=== PATIENT | female | born 1975 | race African-American/Black ===

== ENCOUNTER 2018-04-06 11:10 | Inpatient (IN) | payer OTHER ==
[2018-04-06 12:28] LABS: HCG,QUALITATIVE URINE Negative
[2018-04-06 13:08] LABS: URINE APPEARANCE CLEAR; URINE BILIRUBIN NEGATIVE (<2.0 mg/dL); URINE COLOR YELLOW; URINE GLUCOSE (UA) NEGATIVE (NEGATIVE); URINE KETONE NEGATIVE (NEGATIVE); URINE LEUK ESTERASE NEGATIVE (NEGATIVE); URINE NITRITE NEGATIVE (NEGATIVE); URINE PROTEIN 1+ (NEGATIVE)
--- NOTE | 2018-04-06 13:10 | PDOC ---
History of Present Illness - General Chief Complaint: Chronic pain Stated Complaint: SENT BY PCP History Source: Patient - History of Present Illness Initial Comments: 04/06/18 14:07 42 yr old woman with chronic left lower back pain radiating down her left leg progessively causing weakness since August 2017 was found to have paravertebral mass eroding LS spine on MRI on 03/02/2018. a/w difficulty walking and laying the left side due to pain and constipation for past few months. notes 10lbs weightloss for 1 month. she attempted physical therapy and pain management with Dr. Benito(same office as Dr. Pereira) and received "pain shots in her spine" last one in 12/2017 that provided no relief. denies incontinence, fever, chest pain, sob, dysuria, vaginal bleeding. 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[employer] smokes daily started at age 17, socially etoh, denied illicit drug use Past History - Past Medical History Allergies/Adverse Reactions: Allergies Allergy/AdvReac Type Severity Reaction Status Date / Time morphine Allergy Mild Itching Verified 12/14/11 18:12 No Known Drug Allergies Allergy Verified 12/14/11 18:11 Home Medications: Ambulatory Orders No Home Medications 0 dose .ROUTE UTDICT 12/14/11 Anemia: No Asthma: No Cancer: Yes (uterus pathology tba tomorrow) Cardiac Disorders: No CVA: No COPD: No CHF: No Dementia: No Diabetes: No GI Disorders: No Disorders: No HTN: No Hypercholesterolemia: No Liver Disease: No Seizures: No Thyroid Disease: No - Surgical History Abdominal Surgery: No Appendectomy: No Cardiac Surgery: No Cholecystectomy: No Lung Surgery: No Neurologic Surgery: No Orthopedic Surgery: No - Suicide/Smoking/Psychosocial Hx Smoking Status: Yes Smoking History: Current every day smoker Years of Tobacco Use: 20 Have you smoked in the past 12 months: No Number of Cigarettes Smoked Daily: 8 If you are a former smoker, when did you quit?: 2009 Information on smoking cessation initiated: No 'Breaking Loose' booklet given: 12/01/11 Hx Alcohol Use: Yes (SOCIAL) Drug/Substance Use Hx: No Substance Use Type: None Hx Substance Use Treatment: No Review of Systems - Review of Systems Constitutional: Yes: Unintentional Wgt. Loss. No: Chills, Fever HEENTM: No: Blurred Vision, Throat Pain, Throat Swelling, Difficulty Swallowing Respiratory: No: Cough, SOB with Exertion, SOB at Rest, Hemoptysis Cardiac (ROS): Yes: Edema (left leg swelling). No: Chest Pain, Irregular Heart Rate, Chest Tightness ABD/GI: No: Vomiting Musculoskeletal: Yes: Back Pain, Muscle Weakness Neurological: Yes: Numbness, Tingling, Weakness, Unsteady Gait. No: Dizziness Hematologic/Lymphatic: Yes: Anemia *Physical Exam - Vital Signs Last Vital Signs Temp Pulse Resp BP Pulse Ox 98.8 F 82 18 128/73 97 04/06/18 11:26 04/06/18 11:26 04/06/18 11:26 04/06/18 11:26 04/06/18 11:26 - Physical Exam General Appearance: Yes: Mild Distress HEENT: positive: EOMI, DAWIT, Pharynx Normal Neck: positive: Trachea midline, Supple. negative: Lymphadenopathy (R), Lymphadenopathy (L) Respiratory/Chest: positive: Lungs Clear, Normal Breath Sounds. negative: Rhonchi, Wheezing Cardiovascular: positive: Regular Rhythm, Regular Rate. negative: Murmur Vascular Pulses: Dorsalis-Pedis (R): 2+, Doralis-Pedis (L): 2+ Gastrointestinal/Abdominal: positive: Normal Bowel Sounds, Soft. negative: Tender, Distended Musculoskeletal: positive: Vertebral Tenderness (left lower back and left hip). negative: CVA Tenderness Neurologic: positive: administrative services coordinator II-XII NML intact, Fully Oriented, Alert, Other. negative: Babinski (5/5 extension and flexion and all UE muscle groups, 5/5 extension and flexion on RLE muscle groups, limited ROM at left hip due to pain , 4/5 left knee extension and flexion, 5/5 dorsi and plantar flexion in left. sensation decr in left thigh with numbness in left lower leg) Deep Tendon Reflexes: Knee (L): 2+, Knee (R): 2+, Bicep (L): 2+, Bicep (R): 2+ Moderate Sedation - Procedure Monitoring Vital Signs: Procedure Monitoring Vital Signs Temperature 98.8 F 04/06/18 11: Pulse Rate 82 04/06/18 11:26 Respiratory Rate 18 04/06/18 11:26 Blood Pressure 128/73 04/06/18 11:26 O2 Sat by Pulse Oximetry (%) 97 04/06/18 11:26 ED Treatment Course - ADDITIONAL ORDERS Additional order review: Laboratory Results 04/06/18 12:10 Urine HCG, Qual Negative Medical Decision Making - Medical Decision Making 04/06/18 14:49 discussed with PCP, Dr. Nix to admit pt, consult dr. Alcantara for neurosurgery eval. placed call for Dr. Alcantara, awaiting call back initiated decadron 10mg ivpush, protonix 40mg, pain control with hydromorphone, blood cultures routine labs, CEA 5.1 04/06/18 14:52 dr. nix at bedside, accepted pt under his service *DC/Admit/Observation/Transfer Diagnosis at time of Disposition: Paravertebral mass - Discharge Dispostion Decision to Admit order: Yes - Referrals - Patient Instructions - Post Discharge Activity
[2018-04-06 13:41] LABS: EPI CELLS RARE /HPF (FEW); URINE MUCUS FEW
[2018-04-06] MEDS ORDERED: HYDROmorphone HCL CARPU-JECT 2 MG/1 ML DISP.SYRIN IVPUSH ONE (14:31)
[2018-04-06] MEDS ORDERED: PANTOPRAZOLE SODIUM 40 MG VIAL IVPUSH ONE (14:31)
[2018-04-06] MEDS ORDERED: DEXAMETHASONE SOD PHOSPHATE 10 MG/1 ML VIAL IVPUSH ONE (14:31)
[2018-04-06] MEDS ORDERED: DOCUSATE SODIUM 100 MG CAPSULE (FP) PO ONE ×2 (14:31→15:16)
[2018-04-06] MEDS ORDERED: HYDROmorphone HCl 2 MG/ML VIAL ONE (14:37)
[2018-04-06] MEDS ORDERED: HYDROmorphone HCL CARPU-JECT 2 MG/1 ML DISP.SYRIN IVPB PRN (14:43)
[2018-04-06] MEDS ORDERED: DEXAMETHASONE SOD PHOSPHATE 20 MG/5 ML VIAL IVPB SCH (14:45)
[2018-04-06] MEDS ORDERED: DEXAMETHASONE SOD PHOSPHATE 10 MG/1 ML VIAL ONE (14:55)
[2018-04-06] MEDS ORDERED: PANTOPRAZOLE SODIUM 40 MG/100 ML BAG IVPB ONE (14:55)
--- NOTE | 2018-04-06 14:55 | EKG ---
Test Reason : Blood Pressure : / mmHG Vent. Rate : 075 BPM Atrial Rate : 075 BPM P-R Int : 140 ms QRS Dur : 076 ms QT Int : 364 ms P-R-T Axes : 041 021 019 degrees QTc Int : 406 ms POOR DATA QUALITY, INTERPRETATION MAY BE ADVERSELY AFFECTED NORMAL SINUS RHYTHM NONSPECIFIC T WAVE ABNORMALITY ABNORMAL ECG WHEN COMPARED WITH ECG OF 01-DEC-2011 08:47, NO SIGNIFICANT CHANGE WAS FOUND Confirmed by NOREEN ACEVEDO, PRETTY ([id number]) on 04/06/2018 2:54:53 PM Referred By: Confirmed By:PRETTY SORTO MD
--- NOTE | 2018-04-06 15:00 | HP ---
Admitting History and Physical - Admission Chief Complaint: 42 y.o F was sent to ER today due to worsening left low back and left thigh pain, left LE paresthesias and numbness. The symptoms started and gradually progressed over several months, her MRI LS spine showed paravertebral mass with cortical destruction L4, L5, S1 in March 02 2018. PO oral meds were not effective. 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 No: Alzheimer's, CVA, Dementia, Migraine , Multiple Sclerosis, Peripheral Neuropathy, Parkinson's, Seizure, Syncope, TIA , Vertigo Cardiovascular: No: AFIB, Aneurysm, Aortic Insufficiency, CAD, CHF, HTN, Hyperlipdemia Pulmonary: No: Asthma, COPD Gastrointestinal: No: Cancer Hepatobiliary: No: Cirrhosis, Cholelithiasis, Cholecystitis, Choledocholithiasis , Hepatitis A, Hepatitis B, Hepatitis C, Other Renal/: No: Renal Failure Reproductive: Yes: Other (LISBETH/BSO cervical CA) ...LMP: 09/27/11 Infectious Disease: No: AIDS, C-Diff, Herpes Zoster, HIV, MRSA, STD's, Tuberculosis, VREF, Other Psych: No: Addictions, Anxiety, Bipolar, Depression, Panic, Psychosis, Schizophrenia, Other Rheumatology: No: Fibromyalgia, Gout, Lupus, Rheumatoid Arthritis, Sarcoidosis, Vasculitis, Other ENT: No: Allergic Rhinitis, Sinusitis, Other Endocrine: No: Robbie's Disease, Howie's Disease, Diabetes Insipidus, Diabetes Mellitus, Hyperparathyroidism, Hyperthyroidism, Hypothyroidism, Osteopenia, SIADH, Other Dermatology: No: Basal Cell, Cellulitis, Eczema, Melanoma, Psoriasis, Squamous Cell, Other - Past Surgical History Past Surgical History: Yes: Hysterectomy, Oopherectomy - Smoking History Smoking history: Current every day smoker Have you smoked in the past 12 months: No Aproximately how many cigarettes per day: 8 If you are a former smoker, when did you quit?: 2009 - Alcohol/Substance Use Hx Alcohol Use: Yes (SOCIAL) Home Medications - Allergies Allergies/Adverse Reactions: Allergies Allergy/AdvReac Type Severity Reaction Status Date / Time morphine Allergy Mild Itching Verified 12/14/11 18:12 No Known Drug Allergies Allergy Verified 12/14/11 18:11 - Home Medications Home Medications: Ambulatory Orders No Home Medications 0 dose .ROUTE UTDICT 12/14/11 Family Disease History - Family Disease History Family History: Unremarkable Review of Systems - Review of Systems Eyes: reports: No Symptoms HENT: reports: No Symptoms Neck: reports: No Symptoms Cardiovascular: reports: No Symptoms Respiratory: reports: No Symptoms Gastrointestinal: reports: No Symptoms Genitourinary: denies: Burning, Discharge Breasts: reports: No Symptoms Reported Musculoskeletal: reports: Back Pain, Muscle Pain (left thigh) Integumentary: reports: No Symptoms Neurological: reports: No Symptoms Endocrine: denies: No Symptoms, Excessive Sweating, Flushing, Increased Hunger, Increased Thirst, Intolerance to Cold, Intolerance to Heat, Unexplained Weight Gain, Unexplained Weight Loss, Other Hematology/Lymphatic: denies: No Symptoms, Easily Bruised, Excessive Bleeding, Swollen Glands, Other Psychiatric: reports: No Symptoms Physical Examination Vital Signs: Vital Signs Temperature 98.8 F 04/06/18 11:26 Pulse Rate 82 04/06/18 11:26 Respiratory Rate 18 04/06/18 11:26 Blood Pressure 128/73 04/06/18 11:26 O2 Sat by Pulse Oximetry (%) 97 04/06/18 11:26 Constitutional: Yes: Anxious, Moderate Distress Eyes: Yes: Conjunctiva Clear, EOM Intact HENT: Yes: Atraumatic, Normocephalic Neck: Yes: Supple, Trachea Midline Cardiovascular: Yes: Regular Rate and Rhythm, S1, S2. No: Bradycardia, Tachycardia Respiratory: Yes: Regular, CTA Bilaterally Gastrointestinal: Yes: Normal Bowel Sounds, Soft, Tenderness (Left low quadrant / inguinal). No: Abdomen, Obese, Ascites Renal/: No: Anuria, Bladder Distention, CVA Tenderness - Left, CVA Tenderness - Right Musculoskeletal: Yes: Back Pain, Muscle Pain Extremities: No: Amputation, Calf Tenderness, Cold, Cyanosis Edema: No Integumentary: Yes: WNL Neurological: Yes: Alert, Oriented, Cran Nerves II-XII Intact, Numbness (LLE), Tingling (LLE). No: Aphasia, Confusion ...Motor Strength: LLE (mild weakness) Labs: Laboratory Results - last 24 hr 04/06/18 12:10 Urine Color Yellow Urine Appearance Clear Urine pH 5.0 Ur Specific [place] 1.033 Urine Protein 1+ H Urine Glucose (UA) Negative Urine Ketones Negative Urine Blood Negative Urine Nitrite Negative Urine Bilirubin Negative Urine Urobilinogen 2.0 H Ur Leukocyte Esterase Negative Urine WBC (Auto) 1 Urine RBC (Auto) 9 Ur Epithelial Cells Rare Urine Mucus Few Urine HCG, Qual Negative Imaging - Results Cat Scan: Pending Problem List - Problems (1) Paravertebral mass Assessment/Plan: Discussed with Dr Benito. CT chest/abdomen/pelvis Bone scan IV steroids Biopsy by IR Code(s): R22.2 - LOCALIZED SWELLING, MASS AND LUMP, TRUNK (2) Pain Assessment/Plan: IV hydromoephone IV steroids Code(s): R52 - PAIN, UNSPECIFIED
[2018-04-06 15:05] LABS: HEMATOCRIT 26.7 % (32.4-45.2); HEMOGLOBIN 8.5 GM/dL (10.7-15.3); MCHC 31.9 g/dl (32.0-36.0); MEAN CELL VOLUME 75.2 fl (80-96); MEAN PLT VOLUME 7.3 fl (7.5-11.1); PLATELET COUNT 550 K/MM3 (134-434); RBC 3.55 M/mm3 (3.60-5.2); RDW 16.2 % (11.6-15.6); WHITE BLOOD COUNT 7.1 K/mm3 (4.0-10.0)
[2018-04-06] MEDS ORDERED: ONDANSETRON 4 MG/2 ML VIAL IVPB PRN (15:09)
[2018-04-06 15:14] LABS: INR 1.13 (0.83-1.09); PROTHROMBIN TIME (PATIENT) 13.4 SEC (9.7-13.0)
[2018-04-06 15:17] LABS: ACTIVATED PTT 34.4 SECONDS (25.2-36.5)
[2018-04-06 15:31] LABS: ALBUMIN 3.3 g/dl (3.4-5.0); ALK PHOS 55 U/L (45-117); ANION GAP 5 MMOL/L (8-16); BILIRUBIN,TOTAL 0.3 mg/dL (0.2-1); BLOOD UREA NITROGEN 15 mg/dL (7-18); CALCIUM 9.2 mg/dL (8.5-10.1); CHLORIDE 110 mmol/L (98-107); CO2 28 mmol/L (21-32); CREATININE 0.5 mg/dL (0.55-1.3); GLUCOSE,RANDOM 88 mg/dL (74-106); POTASSIUM 4.3 mmol/L (3.5-5.1); SGOT/AST 28 U/L (15-37); SGPT/ALT 27 U/L (13-61); SODIUM 143 mmol/L (136-145)
--- NOTE | 2018-04-06 15:54 | PDOC ---
Attending Attestation - Resident Resident Name: CosmeAlex - ED Attending Attestation I have performed the following: I have examined & evaluated the patient, The case was reviewed & discussed with the resident, I agree w/resident's findings & plan, Exceptions are as noted - Physicial Exam PE: 04/06/18 15:52 awaker, alert, mild distres nc, atr perrla, eomi cta rrr Reproducible tenderness to the left paraspinal area from the left buttock down to the left hip exacerbated by movement at the left hip joint. no foot drop, nl reflexes b/l, decreased fine touch to l3-l4 - Medical Decision Making 04/06/18 15:53 42-year-old female with a paraspinal mass, most likely metastatic lesion eroding into the lumbar spine with no motor deficit the decrease in fine touch. We'll administer Decadron. Will admit with oncology, neurology and neurosurgery consults. <Minesh Street - Last Filed: 04/06/18 15:52> - HPI HPI: 04/06/18 16:35 The patient is a 42-year-old female who presents to the ED with worsening left- sided lower back pain with LLE numbness and paresthesias. Patient noted to have a paraspinal mass eroding the LS spine on MRI taken on 03/02/18. <Beth Keyes - Last Filed: 04/06/18 16:36> Attestations - Attestations 04/06/18 16:36 Documentation prepared by Beth Keyes, acting as medical/surgery registered nurse for Minesh Street MD. <Beth Keyes - Last Filed: 04/06/18 16:36>
[2018-04-06 16:29] LABS: ERYTHROCYTE SEDIMENTATION RATE 44 mm/hr (0-20)
[2018-04-06 16:49] LABS: PLATELET ESTIMATE INCREASED; TARGET CELLS FEW
--- NOTE | 2018-04-06 17:47 | PN ---
Progress Note (short form) - Note Progress Note: NEUROSURGERY CONSULT DICTATED Chart reviewed February 2018 LS spine MRI reviewed Pt examined c/o worsening left low back and left thigh pain, left LE weakness, paresthesias and numbness. Numbness L groin and perineal region. No B/B incontinence. The symptoms started and gradually progressed over several months, her MRI LS spine showed paravertebral mass with cortical destruction L4, L5, S1 in March 02 2018. PO oral meds were not effective. Pt had not udnergone CT guided needle bx as recommended as yet. PE: AF, VSS HENT- NC/AT; Neck- supple; Cor- RRR; Lungs- CTA B; Abd- benign; Ext- no sign of DVT CN- intact; Motor- 5/5 except mild L IP weakness 4+, pain limited; Sensation- paresthesia to LT/PP L L3-4-5-S1; DTR- 2+ except absent L patellar DTR; + SLR on L at 30 degrees WBC 7.1, Hgb 8.5 MRI LS spine (noncontrast): L L4-L5-S1 Paraspinal mass displacing the psoas muscle anteriorly; T2 hyperintensity L4, L5 and L S1; L4-5, L5-S1 DDD > L3-4 L L4-5-S1 paraspinal mass, r/o mets >s primary malignancy (neurofibroma, malignant schwannoma) CT guided biopsy reasonable and recommended RT or chemo pending path findings Role of surgery likely limited depending on path MRI with niyah electively to assess tumor origin, size, and margin Neurontin for radicular symptoms Steroids D/w Dr Benito
--- NOTE | 2018-04-06 18:48 | PN ---
Progress Note (short form) - Note Progress Note: Patient seen and examined Consult dictated 42 year old with t1,b1 cervical squamous cell ca s/p LISBETH-BSO in 2013 with positive pelvic nodes. No additional post op therapy. Presents with LLE back , hip pain raqdiating into left inguinal area, with MRI of one month ago revealing paraspinal mass with lumbar spine cortical bone destruction . Concern for possible recurrent cervical ca vs new primary. Will need tissue diagnosis . IR notified. Begun on decadron therapy and pain meds. To follow up.
--- NOTE | 2018-04-06 20:25 | CONSULT ---
Consultation: REQUESTING PROVIDER: Dr. Sanchez CONSULT REQUEST: We have been asked to medically evaluate this patient for paraspinal mass. HISTORY OF PRESENT ILLNESS: This is a 42 year old female with a past medical history of squamous cell cervical CA treated with LISBETH -BSO in 2011, who presents with worsening chronic left sided low back pain that is now accompanied with left inguinal numbness, left sided leg weakness. MRI 02/2018 showed left sided paraspinal mass with lumbar spine cortical bone destruction. She denies CORDOVA , blurry vision , sob, cp , fever, chills, abdominal pain, n,v, stool or urinary incontinence. She was had a 10lb weight loss in the past 6 months. SHe never followed up with toll collector after hystorectomy. She smoked 1/2 pack cigarettes every three days for the past 20 years. Denies alcohol or drug use. REVIEW OF SYSTEMS: CONSTITUTIONAL: Positive; wt loss Absent: fever, chills, diaphoresis, generalized weakness, malaise, loss of appetite HEENT: Absent: rhinorrhea, nasal congestion, throat pain, throat swelling, difficulty swallowing, mouth swelling, ear pain, eye pain, visual changes CARDIOVASCULAR: Absent: chest pain, syncope, palpitations, irregular heart rate, lightheadedness , peripheral edema RESPIRATORY: Absent: cough, shortness of breath, dyspnea with exertion, orthopnea, wheezing, stridor, hemoptysis GASTROINTESTINAL: Absent: abdominal pain, abdominal distension, nausea, vomiting, diarrhea, constipation, melena, hematochezia GENITOURINARY: Absent: dysuria, frequency, urgency, hesitancy, hematuria, flank pain, genital pain MUSCULOSKELETAL: Absent: myalgia, arthralgia, joint swelling, back pain, neck pain SKIN: Absent: rash, itching, pallor HEMATOLOGIC/IMMUNOLOGIC: Absent: easy bleeding, easy bruising, lymphadenopathy, frequent infections ENDOCRINE: Absent: unexplained weight gain, unexplained weight loss, heat intolerance, cold intolerance NEUROLOGIC: Absent: headache, focal weakness or paresthesias, dizziness, unsteady gait, seizure, mental status changes, bladder or bowel incontinence PSYCHIATRIC: Absent: anxiety, depression, suicidal or homicidal ideation, hallucinations. PHYSICAL EXAMINATION Vital Signs - 24 hr 04/06/18 04/06/18 04/06/18 11:26 15:21 16:11 Temperature 98.8 F 98 F Pulse Rate 82 Pulse Rate [ 86 Apical] Respiratory 18 18 72 H Rate Blood Pressure 128/73 102/59 L Blood Pressure 112/68 [Left Arm] O2 Sat by Pulse 97 99 Oximetry (%) GENERAL: Awake, alert, and fully oriented, crying HEAD: Normal with no signs of trauma. EYES: Pupils equal, round and reactive to light, extraocular movements intact, sclera anicteric, conjunctiva clear. No lid lag. EARS, NOSE, THROAT: Ears normal, nares patent, oropharynx clear without exudates. Moist mucous membranes. NECK: Normal range of motion, supple without lymphadenopathy, JVD, or masses. LUNGS: Breath sounds equal, clear to auscultation bilaterally. No wheezes, and no crackles. No accessory muscle use. Breast: no masses, nipple discharge or axilla adenopathy HEART: Regular rate and rhythm, normal S1 and S2 without murmur, rub or gallop. ABDOMEN: Soft, nontender, not distended, normoactive bowel sounds, no guarding, no rebound, no masses. No hepatomegaly or splenomegaly. MUSCULOSKELETAL: Normal range of motion at all joints. No bony deformities or tenderness. No CVA tenderness. UPPER EXTREMITIES: 2+ pulses, warm, well-perfused. No cyanosis. No clubbing. Cap refill <2 seconds. No peripheral edema. LOWER EXTREMITIES: 2+ pulses, warm, well-perfused. No calf tenderness. No peripheral edema. NEUROLOGICAL: Cranial nerves II-XII intact. Normal speech. Normal gait. PSYCHIATRIC: Cooperative. Good eye contact. Appropriate mood and affect. SKIN: Warm, dry, normal turgor, no rashes or lesions noted. Laboratory Results - last 24 hr 04/06/18 04/06/18 04/06/18 12:10 14:34 14:34 WBC 7.1 RBC 3.55 L Hgb 8.5 L Hct 26.7 L D MCV 75.2 L MCH 24.0 L MCHC 31.9 L RDW 16.2 H Plt Count 550 H MPV 7.3 L Absolute Neuts (auto) 4.3 Neutrophils % 64.0 Neutrophils % (Manual) 64.0 Band Neutrophils % 0.0 Lymphocytes % 29.0 D Lymphocytes % (Manual) 29.0 Monocytes % 4.0 Monocytes % (Manual) 4 Eosinophils % 0.0 D Eosinophils % (Manual) 0.0 Basophils % 0.0 Basophils % (Manual) 0.0 Nucleated RBC % 0 Hypochromia 1+ Platelet Estimate Increased Platelet Comment Large platelets Target Cells Few ESR 44 H PT with INR INR PTT (Actin FS) Sodium 143 Potassium 4.3 Chloride 110 H Carbon Dioxide 28 Anion Gap 5 L BUN 15 Creatinine 0.5 L Creat Clearance w eGFR > 60 Random Glucose 88 Calcium 9.2 Total Bilirubin 0.3 AST 28 ALT 27 Alkaline Phosphatase 55 C-Reactive Protein 2.8 H Total Protein 7.0 Albumin 3.3 L Urine Color Yellow Urine Appearance Clear Urine pH 5.0 Ur Specific [place] 1.033 Urine Protein 1+ H Urine Glucose (UA) Negative Urine Ketones Negative Urine Blood Negative Urine Nitrite Negative Urine Bilirubin Negative Urine Urobilinogen 2.0 H Ur Leukocyte Esterase Negative Urine WBC (Auto) 1 Urine RBC (Auto) 9 Ur Epithelial Cells Rare Urine Mucus Few Urine HCG, Qual Negative Blood Type Antibody Screen 04/06/18 04/06/18 14:34 14:34 WBC RBC Hgb Hct MCV MCH MCHC RDW Plt Count MPV Absolute Neuts (auto) Neutrophils % Neutrophils % (Manual) Band Neutrophils % Lymphocytes % Lymphocytes % (Manual) Monocytes % Monocytes % (Manual) Eosinophils % Eosinophils % (Manual) Basophils % Basophils % (Manual) Nucleated RBC % Hypochromia Platelet Estimate Platelet Comment Target Cells ESR PT with INR 13.40 H INR 1.13 H PTT (Actin FS) 34.4 Sodium Potassium Chloride Carbon Dioxide Anion Gap BUN Creatinine Creat Clearance w eGFR Random Glucose Calcium Total Bilirubin AST ALT Alkaline Phosphatase C-Reactive Protein Total Protein Albumin Urine Color Urine Appearance Urine pH Ur Specific [place] Urine Protein Urine Glucose (UA) Urine Ketones Urine Blood Urine Nitrite Urine Bilirubin Urine Urobilinogen Ur Leukocyte Esterase Urine WBC (Auto) Urine RBC (Auto) Ur Epithelial Cells Urine Mucus Urine HCG, Qual Blood Type O NEGATIVE Antibody Screen Negative Active Medications Generic Name Dose Route Start Last Admin Trade Name Freq PRN Reason Stop Dose Admin Dexamethasone Sodium Phosphate 12 mg 04/06/18 19:00 Decadron Injection - IVPB Q4H RONNY Gabapentin 300 mg 04/06/18 22:00 Neurontin - PO TID RONNY Hydromorphone HCl 2 mg 04/06/18 14:43 Dilaudid Injection - IVPB Q4H PRN PAIN LEVEL 6-10 Ondansetron HCl 8 mg 04/06/18 15:09 Zofran Injection IVPB Q6H PRN NAUSEA Pantoprazole Sodium 40 mg 04/07/18 10:00 Protonix Iv IVPUSH DAILY RONNY Polyethylene Glycol 17 gm 04/06/18 22:00 Miralax (For Daily Use) - PO BID RONNY ASSESSMENT/PLAN: This is a 42 year old female with a past medical history of cervical squamous cell ca, s/p LISBETH-BSO in 2011 with one positive node on left side, who presents with worsening back pain. MRI as outpatient showing left paraspinal mass Left paraspinal mass -cervical ca vs new malignancy? -need tissue biopsy; arrange for am -decaron IV q4h -neurosurgery consult Dispo: We will continue to follow the patient. Thank you for this consultative opportunity. Visit type - Emergency Visit Emergency Visit: Yes ED Registration Date: 04/06/18 Care time: The patient presented to the Emergency Department on the above date and was hospitalized for further evaluation of their emergent condition. - New Patient This patient is new to me today: Yes Date on this admission: 04/06/18 - Critical Care Critical Care patient: No
[2018-04-06] MEDS: GABAPENTIN 300 MG CAPSULE (FP) PO SCH (21:27)
[2018-04-06] MEDS: POLYETHYLENE GLYCOL 3350 119 GM BTL PO SCH (21:27)
[2018-04-06] MEDS: DEXAMETHASONE SOD PHOSPHATE 20 MG/5 ML VIAL IVPB SCH (21:29)
[2018-04-06] MEDS: HYDROmorphone HCl 2 MG/ML VIAL IVPB PRN (21:47)
[2018-04-07] MEDS: DEXAMETHASONE SOD PHOSPHATE 10 MG/1 ML VIAL IVPB SCH ×6 (03:21→21:19)
[2018-04-07] MEDS: HYDROmorphone HCl 2 MG/ML VIAL IVPB PRN ×3 (03:22→18:05)
[2018-04-07] MEDS: GABAPENTIN 300 MG CAPSULE (FP) PO SCH ×3 (05:24→21:19)
[2018-04-07 07:47] LABS: MCH 24.2 pg (25.7-33.7); MCHC 32.1 g/dl (32.0-36.0); MEAN CELL VOLUME 75.2 fl (80-96); MEAN PLT VOLUME 7.4 fl (7.5-11.1); PLATELET COUNT 557 K/MM3 (134-434); RBC 3.73 M/mm3 (3.60-5.2); RDW 16.3 % (11.6-15.6); WHITE BLOOD COUNT 6.2 K/mm3 (4.0-10.0)
[2018-04-07 07:59] LABS: ALBUMIN 3.3 g/dl (3.4-5.0); ALK PHOS 50 U/L (45-117); ANION GAP 7 MMOL/L (8-16); BILIRUBIN,TOTAL 0.3 mg/dL (0.2-1); BLOOD UREA NITROGEN 14 mg/dL (7-18); CALCIUM 9.8 mg/dL (8.5-10.1); CHLORIDE 104 mmol/L (98-107); CHOLESTEROL 192 mg/dL (50-200); CO2 27 mmol/L (21-32); CREATININE 0.6 mg/dL (0.55-1.3); GLUCOSE,RANDOM 155 mg/dL (74-106); HDL CHOLESTEROL 75 mg/dL (40-60); MAGNESIUM 1.9 mg/dL (1.8-2.4); POTASSIUM 4.3 mmol/L (3.5-5.1); SGOT/AST 15 U/L (15-37); SGPT/ALT 22 U/L (13-61); SODIUM 138 mmol/L (136-145); TOT PROT 7.3 g/dl (6.4-8.2); TRIGLYCERIDES 33 mg/dL (0-150)
--- NOTE | 2018-04-07 08:19 | PN ---
Progress Note, Physician Chief Complaint: C/o LLE/low back pain. Neurosurg , onc consult appreciated CT discussed with radiology History of Present Illness: Cervical cancer LISBETH/BSO - Current Medication List Current Medications: Active Medications Dexamethasone Sodium Phosphate (Decadron Injection -) 12 mg IVPB Q4H-IV RONNY Last Admin: 04/07/18 05:25 Dose: 12 mg Gabapentin (Neurontin -) 300 mg PO TID RONNY Last Admin: 04/07/18 05:24 Dose: 300 mg Hydromorphone HCl (Dilaudid Vial -) 2 mg IVPB Q4H PRN PRN Reason: PAIN LEVEL 6-10 Last Admin: 04/07/18 03:22 Dose: 2 mg Ondansetron HCl (Zofran Injection) 8 mg IVPB Q6H PRN PRN Reason: NAUSEA Pantoprazole Sodium (Protonix Iv) 40 mg IVPUSH DAILY COUNTS INCLUDE 234 BEDS AT THE [facility] Polyethylene Glycol (Miralax (For Daily Use) -) 17 gm PO BID COUNTS INCLUDE 234 BEDS AT THE [facility] Last Admin: 04/06/18 21:27 Dose: 17 grams - Objective Vital Signs: Vital Signs Temperature 98.2 F 04/07/18 05:45 Pulse Rate 100 H 04/07/18 05:45 Respiratory Rate 20 04/07/18 05:45 Blood Pressure 112/70 04/07/18 05:45 O2 Sat by Pulse Oximetry (%) 96 04/06/18 21:00 Constitutional: Yes: Anxious, Moderate Distress Eyes: Yes: Conjunctiva Clear, EOM Intact HENT: Yes: Atraumatic, Normocephalic Neck: Yes: Supple, Trachea Midline Cardiovascular: Yes: Regular Rate and Rhythm. No: JVD Respiratory: Yes: Regular, CTA Bilaterally Gastrointestinal: Yes: Normal Bowel Sounds, Soft, Tenderness (left inguinal). No: Abdomen, Obese ...Rectal Exam: Yes: Deferred Genitourinary: No: Anuria, Bladder Distention Breast(s): Yes: WNL Musculoskeletal: Yes: Muscle Pain (left thigh) Extremities: No: Calf Tenderness, Cold, Cyanosis Edema: No Integumentary: Yes: WNL Neurological: Yes: Alert, Oriented, Numbness (Left LE). No: Aphasia, Dysarthria Labs: CBC, BMP 04/07/18 06:07 04/07/18 06:07 INR, PTT INR 1.13 (0.83-1.09) H 04/06/18 14:34 Problem List - Problems (1) Paravertebral mass Assessment/Plan: Discussed with Dr Benito. CT chest/abdomen/pelvis-noted Bone scan IV steroids Biopsy by IR Code(s): R22.2 - LOCALIZED SWELLING, MASS AND LUMP, TRUNK (2) Pain Assessment/Plan: IV hydromoephone IV steroids Code(s): R52 - PAIN, UNSPECIFIED
--- NOTE | 2018-04-07 08:27 | CONS ---
DATE OF CONSULTATION: 04/06/2018 CHIEF COMPLAINT: Left L4, L5, and S1 radiculopathy. HISTORY OF PRESENT ILLNESS: The patient is a 42-year-old right-handed female with history of cervical CA status post hysterectomy and bilateral oophorectomy approximately 6 years earlier. She complains of a 1-year history of increasing lower back pain radiating down to the left thigh, calf with associated left leg weakness and paresthesia. She has been numb in her left perineal and groin region. Her pain has worsened over the last couple months. She did undergo an MRI in February, about a month ago, but has not undergone further treatment or evaluation of the lesion. The patient denies any bowel or bladder dysfunction. The pain is worse with straightening her legs out and putting weight on her left leg. Oral medication has not helped her much. She was recommended reportedly to undergo CT-guided biopsy , but has not had it yet. PAST MEDICAL HISTORY: Significant for cervical CA status post LISBETH/BSO, left buttock abscess. CURRENT MEDICATIONS: Include Zofran, Decadron, MiraLAX, Dilaudid, and Protonix. ALLERGIES: MORPHINE. SOCIAL HISTORY: She smokes about 1/4 pack of cigarettes a day. She drinks alcohol socially. She works in the [employer]. She lives at home with her . REVIEW OF SYSTEMS: Otherwise negative for major constitutional, head and neck, cardiovascular, pulmonary, gastrointestinal, genitourinary, endocrinological, neurological, and psychological problems except for the above. PHYSICAL EXAMINATION: Vital Signs: Temperature is 98, blood pressure is 102/59 with pulse rate of 72 , O2 saturation is 99% on room air. HEENT: Examination shows her to be normocephalic, atraumatic, anicteric. Neck: Supple with no carotid bruit or lymphadenopathy. Coronary: Examination demonstrated regular rhythm. Lungs: Clear bilaterally. Abdomen: Benign. Extremities: Examination showed no signs of DVT. Distal pulses are 2+. Neurologic: She is awake, alert, oriented x4. Cranial nerve examination is intact 2-12. Motor examination shows 5/5 strength except left iliopsoas which is 4+/5, limited by pain. Sensory examination shows paresthesia of left L3, L4, L5, and S1 distribution. Deep tendon reflexes are 2+ throughout except absent left patellar reflex. Back: Examination showed left-sided paraspinal muscle spasm and tenderness to palpation. She has mild left sciatic notch tenderness. Serum sodium is 143, and potassium is 4.3. BUN is 15 and creatinine 0.5. LFTs are normal. C-reactive protein is 2.8. Albumin is 3.3. White blood cell count is 7.1, hemoglobin is 8.5, and hematocrit is 26.7. INR is 1.13. Ptt is 34.4. Urinalysis shows 1 WBC and 9 RBC. Leukocyte esterase was negative. MRI examination of the lumbar spine demonstrated a sacralized L5 segment. There is left L4, L5, and S1 paraspinal mass, displacing the left psoas muscle anteriorly. There is T2 hyperintensity of the L4 and L5 vertebral body as well as the left sacral ala. There is no spinal canal involvement. There is degenerative disk space narrowing at L4-5 and L5-S1, greater than L3-4. IMPRESSION: Rule out left L4/L5/S1 paraspinal cervical cancer metastasis versus primary malignancy. RECOMMENDATIONS: The patient presents with 1-year history of left-sided sciatica. Her pain has been worsening over the past few months. An MRI this February demonstrated left-sided L4, L5, and S1 paraspinal mass corresponding with her current symptomatology of left lower extremity radiculopathy. On my examination today, she has weakness of left iliopsoas and absent left patellar reflex. There is also associated paresthesia from L3 to S1 distribution. Her symptoms are likely caused by the paraspinal tumor on the left side. A CT-guided biopsy is recommended. She is already on IV steroids. I took the liberty of putting her on gabapentin 300 mg p.o. t.i.d. for her left lower extremity radicular symptoms. The lesion will be most reasonably treated by a combination of radiation and chemotherapy, especially if this is cervical CA. If there is a different pathology, surgical intervention could be considered if it is resectable safely. On the other hand, that would likely not be the primary treatment modality. The above was discussed with the patient and her at bedside. The care was also discussed with Dr. David Benito, Medical Oncology, who had discussed with her the care with the primary care physician already as well. JOSH GALEANO M.D. ANNALEE/[id number] [email or web address]
[2018-04-07] MEDS: PANTOPRAZOLE SODIUM 40 MG VIAL IVPUSH SCH (09:24)
[2018-04-07] MEDS: POLYETHYLENE GLYCOL 3350 119 GM BTL PO SCH ×2 (10:21→21:19)
[2018-04-07 11:19] LABS: ANISOCYTOSIS 1+; MACROCYTOSIS 0; OVALOCYTE 1+; PLATELET ESTIMATE INCREASED; TARGET CELLS 1+
--- NOTE | 2018-04-07 12:13 | PN ---
Physical Exam: SUBJECTIVE: Patient seen and examined; no events onp; still with low back pain; admits to some nausea with pain meds; no vomiting, eating well. No fever, chills, sob. CT abd/pelvis w contrast done yesterday, pelvic mass vs abscess. OBJECTIVE: Vital Signs Period Temp Pulse Resp BP Sys/Armenta Pulse Ox Last 24 Hr 98 F-98.4 F 61-100 18-72 95-138/48-74 96-99 GENERAL: The patient is awake, alert, and fully oriented, in no acute distress. HEAD: Normal with no signs of trauma. LUNGS: Breath sounds equal, clear to auscultation bilaterally, no wheezes, no crackles, no accessory muscle use. HEART: Regular rate and rhythm, S1, S2 without murmur, rub or gallop. ABDOMEN: Soft, nontender, nondistended, normoactive bowel sounds, no guarding, no rebound, no hepatosplenomegaly, no masses. EXTREMITIES: 2+ pulses, warm, well-perfused, no edema. NEUROLOGICAL: Cranial nerves II through XII grossly intact. Normal speech, gait not observed. PSYCH: Normal mood, normal affect. SKIN: Warm, dry, normal turgor, no rashes or lesions noted Laboratory Results - last 24 hr 04/06/18 04/06/18 04/06/18 12:10 14:34 14:34 WBC 7.1 RBC 3.55 L Hgb 8.5 L Hct 26.7 L D MCV 75.2 L MCH 24.0 L MCHC 31.9 L RDW 16.2 H Plt Count 550 H MPV 7.3 L Absolute Neuts (auto) 4.3 Neutrophils % 64.0 Neutrophils % (Manual) 64.0 Band Neutrophils % 0.0 Lymphocytes % 29.0 D Lymphocytes % (Manual) 29.0 Monocytes % 4.0 Monocytes % (Manual) 4 Eosinophils % 0.0 D Eosinophils % (Manual) 0.0 Basophils % 0.0 Basophils % (Manual) 0.0 Myelocytes % (Man) Promyelocytes % (Man) Blast Cells % (Manual) Nucleated RBC % 0 Metamyelocytes Hypochromia 1+ Platelet Estimate Increased Platelet Comment Large platelets Polychromasia Poikilocytosis Anisocytosis Microcytosis Macrocytosis Target Cells Few Ovalocytes Schistocytes ESR 44 H PT with INR INR PTT (Actin FS) Sodium 143 Potassium 4.3 Chloride 110 H Carbon Dioxide 28 Anion Gap 5 L BUN 15 Creatinine 0.5 L Creat Clearance w eGFR > 60 Random Glucose 88 Hemoglobin A1c % Calcium 9.2 Magnesium Total Bilirubin 0.3 AST 28 ALT 27 Alkaline Phosphatase 55 C-Reactive Protein 2.8 H Total Protein 7.0 Albumin 3.3 L Triglycerides Cholesterol Total LDL Cholesterol HDL Cholesterol Urine Color Yellow Urine Appearance Clear Urine pH 5.0 Ur Specific [place] 1.033 Urine Protein 1+ H Urine Glucose (UA) Negative Urine Ketones Negative Urine Blood Negative Urine Nitrite Negative Urine Bilirubin Negative Urine Urobilinogen 2.0 H Ur Leukocyte Esterase Negative Urine WBC (Auto) 1 Urine RBC (Auto) 9 Ur Epithelial Cells Rare Urine Mucus Few Urine HCG, Qual Negative Blood Type Antibody Screen 04/06/18 04/06/18 04/07/18 14:34 14:34 06:07 WBC 6.2 RBC 3.73 Hgb 9.0 L Hct 28.0 L MCV 75.2 L MCH 24.2 L MCHC 32.1 RDW 16.3 H Plt Count 557 H MPV 7.4 L Absolute Neuts (auto) 4.7 Neutrophils % No Result Required. Neutrophils % (Manual) 85.9 H Band Neutrophils % 1.0 Lymphocytes % No Result Required. Lymphocytes % (Manual) 12.1 D Monocytes % Monocytes % (Manual) 1 L Eosinophils % Eosinophils % (Manual) 0.0 Basophils % Basophils % (Manual) 0.0 Myelocytes % (Man) 0 Promyelocytes % (Man) 0 Blast Cells % (Manual) 0 Nucleated RBC % 0 Metamyelocytes 0 Hypochromia 1+ Platelet Estimate Increased Platelet Comment Polychromasia 1+ Poikilocytosis 2+ Anisocytosis 1+ Microcytosis 1+ Macrocytosis 0 Target Cells 1+ Ovalocytes 1+ Schistocytes 1+ ESR PT with INR 13.40 H INR 1.13 H PTT (Actin FS) 34.4 Sodium Potassium Chloride Carbon Dioxide Anion Gap BUN Creatinine Creat Clearance w eGFR Random Glucose Hemoglobin A1c % Calcium Magnesium Total Bilirubin AST ALT Alkaline Phosphatase C-Reactive Protein Total Protein Albumin Triglycerides Cholesterol Total LDL Cholesterol HDL Cholesterol Urine Color Urine Appearance Urine pH Ur Specific [place] Urine Protein Urine Glucose (UA) Urine Ketones Urine Blood Urine Nitrite Urine Bilirubin Urine Urobilinogen Ur Leukocyte Esterase Urine WBC (Auto) Urine RBC (Auto) Ur Epithelial Cells Urine Mucus Urine HCG, Qual Blood Type O NEGATIVE Antibody Screen Negative 04/07/18 04/07/18 06:07 06:07 WBC RBC Hgb Hct MCV MCH MCHC RDW Plt Count MPV Absolute Neuts (auto) Neutrophils % Neutrophils % (Manual) Band Neutrophils % Lymphocytes % Lymphocytes % (Manual) Monocytes % Monocytes % (Manual) Eosinophils % Eosinophils % (Manual) Basophils % Basophils % (Manual) Myelocytes % (Man) Promyelocytes % (Man) Blast Cells % (Manual) Nucleated RBC % Metamyelocytes Hypochromia Platelet Estimate Platelet Comment Polychromasia Poikilocytosis Anisocytosis Microcytosis Macrocytosis Target Cells Ovalocytes Schistocytes ESR PT with INR INR PTT (Actin FS) Sodium 138 Potassium 4.3 Chloride 104 Carbon Dioxide 27 Anion Gap 7 L BUN 14 Creatinine 0.6 Creat Clearance w eGFR > 60 Random Glucose 155 H Hemoglobin A1c % 5.0 Calcium 9.8 Magnesium 1.9 Total Bilirubin 0.3 AST 15 ALT 22 Alkaline Phosphatase 50 C-Reactive Protein Total Protein 7.3 Albumin 3.3 L Triglycerides 33 Cholesterol 192 Total LDL Cholesterol 102 H HDL Cholesterol 75 H Urine Color Urine Appearance Urine pH Ur Specific [place] Urine Protein Urine Glucose (UA) Urine Ketones Urine Blood Urine Nitrite Urine Bilirubin Urine Urobilinogen Ur Leukocyte Esterase Urine WBC (Auto) Urine RBC (Auto) Ur Epithelial Cells Urine Mucus Urine HCG, Qual Blood Type Antibody Screen Active Medications Generic Name Dose Route Start Last Admin Trade Name Timothyq PRN Reason Stop Dose Admin Dexamethasone Sodium Phosphate 12 mg 04/07/18 02:30 04/07/18 09:19 Decadron Injection - IVPB 12 mg Q4H-IV RONNY Administration Gabapentin 300 mg 04/06/18 22:00 04/07/18 05:24 Neurontin - PO 300 mg TID RONNY Administration Hydromorphone HCl 2 mg 04/06/18 21:26 04/07/18 03:22 Dilaudid Vial - IVPB 2 mg Q4H PRN Administration PAIN LEVEL 6-10 Ondansetron HCl 8 mg 04/06/18 15:09 Zofran Injection IVPB Q6H PRN NAUSEA Pantoprazole Sodium 40 mg 04/07/18 10:00 04/07/18 09:24 Protonix Iv IVPUSH 40 mg DAILY RONNY Administration Polyethylene Glycol 17 gm 04/06/18 22:00 04/07/18 10:21 Miralax (For Daily Use) - PO 17 grams BID RONNY Administration Zolpidem Tartrate 10 mg 04/07/18 22:00 Ambien - PO HS [facility] CT abd/pelvis with contrast: Impression: Large ill defined left paravertebral low-attenuation masslike density measuring approximately 6 x 5 x 4 cm in craniocaudal, transverse and AP dimension involving posterior aspect of the left psoas muscle that is displaced anteriorly and extending laterally to involve the left iliopsoas muscle. Faint peripheral enhancement is present on the delayed images. There is bone abnormality involving the left transverse processes of L5 that is sacralized forming pseudoarthrosis with left S1 as well as mild increased attenuation and minimal irregularity in the lateral margin of left L4 and L5 vertebral body. The above findings together with prior MRI of the lumbar spine findings are suspicious for osteomyelitis and left paravertebral abscess formation. Malignancy is less likely; however, it could not be entirely excluded. ASSESSMENT/PLAN: This is a 42 year old female with a past medical history of cervical squamous cell ca, s/p LISBETH-BSO in 2011 with one positive node on left side, who presents with worsening back pain. MRI as outpatient showing left paraspinal mass Left paraspinal mass -malignancy vs abscess as per imaging -CT guided tidssue biopsy for tomorrow -steroids/isaac control -neurosurgery rodrigo Will follow Visit type - Emergency Visit Emergency Visit: Yes ED Registration Date: 04/06/18 Care time: The patient presented to the Emergency Department on the above date and was hospitalized for further evaluation of their emergent condition. - New Patient This patient is new to me today: No - Critical Care Critical Care patient: No
--- NOTE | 2018-04-07 13:36 | ECHO ---
Name: BEBETO HOLLAND Exam:Adult Echocardiogram Study Date: 04/07/2018 07:25 AM Age: 42 yrs Reason For Study: CHF Height: 63 in Weight: 148 lb BSA: 1.7 m2 MMode/2D Measurements & Calculations IVSd: 0.74 cm Ao root diam: 3.1 cm LVIDd: 4.8 cm LA dimension: 3.2 cm LVIDs: 2.5 cm LVPWd: 0.70 cm EDV(Teich): 104.9 ml LAV (MOD-bp): 41.6 ml ESV(Teich): 23.3 ml Doppler Measurements & Calculations MV E max haja: 96.5 cm/sec MV A max haja: 87.3 cm/sec MV dec slope: 773.0 cm/sec2 MV E/A: 1.1 MR max haja: 316.9 cm/sec TR max haja: 187.3 cm/sec MR max P.6 mmHg TR max P.0 mmHg Med Peak E' Haja: 11.0 cm/sec PI Vmax: 93.0 cm/sec Med E/e': 8.8 Lat Peak E' Haja: 13.2 cm/sec Lat E/e': 7.3 Procedure A complete two-dimensional transthoracic echocardiogram was performed (2D, M-mode, Doppler and color flow Doppler). Left Ventricle The left ventricular size, thickness and function are normal. The left ventricular ejection fraction is normal. Ejection Fraction = 60-65%. The left ventricular wall motion is normal. Right Ventricle The right ventricle is normal in size and function. Atria Normal left and right atrial size and function. Mitral Valve There is trace mitral regurgitation. Tricuspid Valve No tricuspid regurgitation. There was insufficient TR detected to calculate RV systolic pressure. Aortic Valve No hemodynamically significant valvular aortic stenosis. No aortic regurgitation is present. Pulmonic Valve There is no pulmonic valvular regurgitation. Great Vessels The aortic root is normal size. Pericardium/Pleura There is no pericardial effusion. Interpretation Summary The left ventricular size, thickness and function are normal The right ventricle is normal in size and function. There is trace mitral regurgitation. MD Rupert Rowe 04/07/2018 01:35 PM
[2018-04-07] MEDS: ZOLPIDEM TARTRATE 5 MG TABLET PO SCH (21:19)
--- NOTE | 2018-04-07 23:21 | PN ---
Teaching Attending Note Name of Resident: Saima Zayas ATTENDING PHYSICIAN STATEMENT I saw and evaluated the patient. I reviewed the resident's note and discussed the case with the resident. I agree with the resident's findings and plan as documented. ASSESSMENT AND PLAN: This is a 42 year old female with a past medical history of cervical squamous cell ca, s/p LISBETH-BSO in 2011 with one positive node on left side, who presents with worsening back pain. MRI as outpatient showing left paraspinal mass Left paraspinal mass For tissue biopsy per IR On pain control/antiemetics Neurosurgery team following
[2018-04-08] MEDS: DEXAMETHASONE SOD PHOSPHATE 10 MG/1 ML VIAL IVPB SCH ×4 (01:36→14:23)
[2018-04-08] MEDS: GABAPENTIN 300 MG CAPSULE (FP) PO SCH ×4 (06:00→21:51)
[2018-04-08] MEDS: DEXAMETHASONE SOD PHOSPHATE 20 MG/5 ML VIAL IVPB SCH (07:51)
--- NOTE | 2018-04-08 08:22 | PN ---
Progress Note (short form) - Note Progress Note: NEUROSURGERY c/o worsening left low back and left thigh pain, left LE weakness, paresthesias and numbness. Numbness L groin and perineal region. No B/B incontinence. The symptoms started and gradually progressed over several months. Pt had not undergone CT guided needle bx yet. Pt declined MRI with niyah despite agreeing to do it earlier. Hat CT abd/pelvis instead PE: Tmax 98.9, AF, VSS HENT- NC/AT; Neck- supple; Cor- RRR; Lungs- CTA B; Abd- benign; Ext- no sign of DVT CN- intact; Motor- 5/5 except mild L IP weakness 4+, pain limited; Sensation- paresthesia to LT/PP L L3-4-5-S1; DTR- 2+ except absent L patellar DTR; + SLR on L at 30 degrees WBC 7.1, Hgb 8.5 MRI LS spine (noncontrast): L L4-L5-S1 Paraspinal mass displacing the psoas muscle anteriorly; T2 hyperintensity L4, L5 and L S1; L4-5, L5-S1 DDD > L3-4 CT Abd- 4x5x6 mixed density L paravertebral lesion L L4-5-S1 paraspinal mass, r/o mets >s primary malignancy (neurofibroma, malignant schwannoma, leiomyosarcoma), less likely infection CT guided biopsy reasonable and recommended Role of surgery likely limited depending on path MRI with niyah electively to assess tumor origin, size, and margin Cont Neurontin for radicular symptoms Steroids D/w Dr Lowe
[2018-04-08 08:25] LABS: ALK PHOS 41 U/L (45-117); ANION GAP 7 MMOL/L (8-16); BILIRUBIN,TOTAL 0.1 mg/dL (0.2-1); BLOOD UREA NITROGEN 17 mg/dL (7-18); CALCIUM 9.9 mg/dL (8.5-10.1); CHLORIDE 105 mmol/L (98-107); CO2 27 mmol/L (21-32); CREATININE 0.6 mg/dL (0.55-1.3); GLUCOSE,RANDOM 116 mg/dL (74-106); POTASSIUM 4.4 mmol/L (3.5-5.1); SGOT/AST 9 U/L (15-37); SGPT/ALT 18 U/L (13-61); SODIUM 139 mmol/L (136-145); TOT PROT 6.4 g/dl (6.4-8.2)
[2018-04-08 08:55] LABS: HEMATOCRIT 24.9 % (32.4-45.2); MCH 24.3 pg (25.7-33.7); MCHC 32.3 g/dl (32.0-36.0); MEAN CELL VOLUME 75.1 fl (80-96); PLATELET COUNT 474 K/MM3 (134-434); RBC 3.31 M/mm3 (3.60-5.2); RDW 16.2 % (11.6-15.6); WHITE BLOOD COUNT 10.2 K/mm3 (4.0-10.0)
--- NOTE | 2018-04-08 09:02 | PN ---
Progress Note (short form) - Note Progress Note: Patient is going today for the biopsy of paravertebral mass. Discussed with he pt. neurosurgery, IR. C/o nausea left low back pain. Vital Signs Temp 98.2 F 04/08/18 08:36 Pulse 68 04/08/18 08:36 Resp 17 04/08/18 08:36 BP 123/68 04/08/18 08:36 Pulse Ox 100 04/07/18 21:00 Intake & Output 04/07/18 04/07/18 04/08/18 11:59 23:59 11:59 Intake Total 705 850 50 Balance 705 850 50 Intake: IV 375 S/L 375 IVPB 100 350 50 Oral 230 500 Other: Voiding Method Toilet Toilet Toilet # Unmeasured Voids Void 1 Lungs clear Heart S1s2 regular Abdomen soft, NT Laboratory Results - last 24 hr 04/07/18 04/08/18 04/08/18 06:07 06:00 06:00 WBC 10.2 H RBC 3.31 L Hgb 8.0 L Hct 24.9 L MCV 75.1 L MCH 24.3 L MCHC 32.3 RDW 16.2 H Plt Count 474 H MPV 8.0 Neutrophils % No Result Required. Neutrophils % (Manual) 85.9 H Band Neutrophils % 1.0 Lymphocytes % No Result Required. Lymphocytes % (Manual) 12.1 D Monocytes % (Manual) 1 L Eosinophils % (Manual) 0.0 Basophils % (Manual) 0.0 Myelocytes % (Man) 0 Promyelocytes % (Man) 0 Blast Cells % (Manual) 0 Nucleated RBC % 0 Metamyelocytes 0 Hypochromia 1+ Platelet Estimate Increased Polychromasia 1+ Poikilocytosis 2+ Anisocytosis 1+ Microcytosis 1+ Macrocytosis 0 Target Cells 1+ Ovalocytes 1+ Schistocytes 1+ Sodium 139 Potassium 4.4 Chloride 105 Carbon Dioxide 27 Anion Gap 7 L BUN 17 Creatinine 0.6 Creat Clearance w eGFR > 60 Random Glucose 116 H Calcium 9.9 Total Bilirubin 0.1 L AST 9 L ALT 18 Alkaline Phosphatase 41 L Total Protein 6.4 Albumin 3.0 L Current Active Problems Problem Status Onset Pain Acute Paravertebral mass Acute Plan Pain management F/u after biopsy Bone scan, MRI with contrast discussed Iv Steroids Problem List - Problems (1) Paravertebral mass Code(s): R22.2 - LOCALIZED SWELLING, MASS AND LUMP, TRUNK (2) Pain Code(s): R52 - PAIN, UNSPECIFIED
[2018-04-08] MEDS: PANTOPRAZOLE SODIUM 40 MG VIAL IVPUSH SCH (09:04)
[2018-04-08] MEDS ORDERED: PT OWN MED DRAWER 7, Y5N ONE ×2 (09:06→10:14)
[2018-04-08] MEDS ORDERED: SUCCINYLCHOLINE CHLORIDE 200 MG/10 ML VIAL ONE (09:25)
[2018-04-08] MEDS ORDERED: PROPOFOL 20 ML ONE ×5 (09:25)
[2018-04-08] MEDS ORDERED: MIDAZOLAM HCL 2 MG/2 ML SINGLE DOSE VIAL ONE (09:25)
--- NOTE | 2018-04-08 10:09 | CONS ---
DATE OF CONSULTATION: 04/06/2018 REFERRING PHYSICIAN: Ryne Lowe MD HISTORY: This is a 42-year-old female who enters with left thigh pain radiating to the left inguinal area associated with paresthesias and numbness of the left lower extremity. There has been a progression over the past several months. Recent MRI revealed a paravertebral mass as well as cortical destruction of L4, L5, and S1. The patient has a history of cervical cancer status post LISBETH/BSO with positive pelvic nodes in 2012. There is a history of a buttock abscess in 2013. PAST SURGICAL HISTORY: Otherwise, nonrevealing. PAST MEDICAL HISTORY: Otherwise, nonrevealing. FAMILY HISTORY: Negative for malignancy. 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 She smoked beginning at age 16 one pack every several days. She continues to smoke. There are no industrial exposures or . No illicit drugs. The patient drinks alcohol socially. ALLERGIES: Include MORPHINE with itching. HOME MEDICATIONS: There were no home medications. PHYSICAL EXAMINATION: Vital Signs: BP 102/59, pulse 72, respiratory rate 20, afebrile, weight 150 pounds, height 5 feet 4 inches. HEENT: MANJULA. EOM intact. Oropharynx unremarkable. Neck: Supple. No thyromegaly. No masses. Lymphatics: No evidence of cervical, supraclavicular, or axillary. Lungs: Clear to P and A without rales or rhonchi. Cardiac: Without murmur or gallop. Abdomen: Soft. No organomegaly or masses. Breasts: No dominant masses, dimpling, or retraction. Extremities: A mottling of the left lower leg from a burn from a heating pad. Weakness left lower extremity with pain on internal and external rotation at the left hip. REVIEW OF SYSTEMS: No headaches, diplopia, epistaxis, dysphagia, chest pain, shortness of breath, difficulty breathing, reflux. Patient has had nausea relieved with antiemetics. No vomiting, diarrhea, constipation. No dysuria, hematuria, pyuria. Left lower extremity pain and numbness. LABORATORY: WBC 7.1, hematocrit 26, MCV 75, platelets 550,000. Hypochromia. INR 1.13, PTT 34. Chemistries: Sodium 143, potassium 4.3, chloride 110, CO2 is 28, BUN 15, creatinine 0.58, AST 28, ALT 27, protein 7, albumin 3.3. IMPRESSION: A 42-year-old with a history of cervical cancer 2013 status post total abdominal hysterectomy, bilateral salpingectomy with pelvic nodes positive now comes in with paraspinal mass and pain in the left hip radiating to the left inguinal area with numbness of the left lower extremity. Concern for possible reoccurrence of cervical cancer versus second malignancy. PLAN: Decadron instituted. The patient will need tissue biopsy with radiation therapy. Based upon results, further recommendations. Assuming malignancy is diagnosed, radiation therapy would be warranted independent of histology. CURTIS YANG M.D. MILO/[id number]
[2018-04-08] MEDS ORDERED: SODIUM CHLORIDE 1,000 ML IV SCH (11:45)
[2018-04-08 13:00] LABS: ANISOCYTOSIS 2+; MACROCYTOSIS 0; PLATELET ESTIMATE NORMAL; TARGET CELLS 1+
[2018-04-08] MEDS: POLYETHYLENE GLYCOL 3350 119 GM BTL PO SCH ×2 (13:02→21:52)
[2018-04-08] MEDS: HYDROmorphone HCl 2 MG/ML VIAL IVPB PRN (13:25)
--- NOTE | 2018-04-08 14:17 | PN ---
Progress Note (short form) - Note Progress Note: Patient seen and examined S/P biopsy - tolerated well Biopsy site dressing - dry intact Some " fogginess" from analgesia Last Vital Signs Temp Pulse Resp BP Pulse Ox 97.7 F 72 20 123/72 100 04/08/18 13:08 04/08/18 13:08 04/08/18 13:08 04/08/18 13:08 04/08/18 13:08 HEENT: MANJULA, EOM Intact Cor: RSR, No murmurs, No gallops Lungs: Clear to P&A Abd: Soft, Normal bowel sounds, No organomegaly Ext:No significant edema Skin: No rashes, Integument intact CBC, BMP 04/08/18 06:00 04/08/18 06:00 Current Medications Generic Name Dose Route Start Last Admin Trade Name Freq PRN Reason Stop Dose Admin Dexamethasone Sodium Phosphate 12 mg 04/07/18 02:30 04/08/18 09:13 Decadron Injection - IVPB 12 mg Q4H-IV RONNY Administration Fentanyl 50 mcg 04/08/18 11:36 Sublimaze Injection - IVPUSH [id number] PRN PAIN-PACU ORDER X 4 DOSES ONLY Gabapentin 300 mg 04/06/18 22:00 04/08/18 13:24 Neurontin - PO 300 mg TID RONNY Administration Hydromorphone HCl 2 mg 04/06/18 21:26 04/08/18 13:25 Dilaudid Vial - IVPB 2 mg Q4H PRN Administration PAIN LEVEL 6-10 Sodium Chloride 1,000 mls @ 42 mls/hr 04/08/18 11:45 04/08/18 13:46 Normal Saline - IV 42 mls/hr ASDIR RONNY Administration Ondansetron HCl 8 mg 04/07/18 19:50 Zofran Injection IVPB Q8H PRN NAUSEA Pantoprazole Sodium 40 mg 04/07/18 10:00 04/08/18 09:04 Protonix Iv IVPUSH 40 mg DAILY RONNY Administration Polyethylene Glycol 17 gm 04/06/18 22:00 04/08/18 13:02 Miralax (For Daily Use) - PO Not Given BID RONNY Zolpidem Tartrate 10 mg 04/07/18 22:00 04/07/18 21:19 Ambien - PO 10 mg HS RONNY Administration Impression: History of cervical ca Paraspinal mass s/p biopsy Anemia - ? chronic disease , ? Fe++ deficient Plan to adjust decadron dosing Fe++ studies If discharged can follow up as out patient - but would monitor for now and need NS clearance
[2018-04-08 14:38] VITALS: BMI 26.5
[2018-04-08] MEDS ORDERED: DEXAMETHASONE SOD PHOSPHATE 4 MG/1 ML VIAL IVPUSH SCH (15:00)
[2018-04-08] MEDS: ONDANSETRON 4 MG/2 ML VIAL IVPB PRN (15:29)
[2018-04-08] MEDS: DEXAMETHASONE SOD PHOSPHATE 4 MG/1 ML VIAL IVPUSH SCH (21:51)
[2018-04-08] MEDS: ZOLPIDEM TARTRATE 5 MG TABLET PO SCH (21:52)
[2018-04-09] MEDS: DEXAMETHASONE SOD PHOSPHATE 4 MG/1 ML VIAL IVPUSH SCH ×4 (02:20→21:54)
[2018-04-09] MEDS: GABAPENTIN 300 MG CAPSULE (FP) PO SCH (05:56)
[2018-04-09] MEDS ORDERED: PT OWN MED DRAWER 7, Y5N ONE (06:41)
[2018-04-09] MEDS: HYDROmorphone HCl 2 MG/ML VIAL IVPB PRN ×2 (09:24→22:33)
[2018-04-09] MEDS: PANTOPRAZOLE SODIUM 40 MG VIAL IVPUSH SCH (09:24)
[2018-04-09] MEDS: POLYETHYLENE GLYCOL 3350 119 GM BTL PO SCH ×2 (09:26→22:00)
[2018-04-09 09:42] LABS: HEMATOCRIT 27.5 % (32.4-45.2); HEMOGLOBIN 8.8 GM/dL (10.7-15.3); MCH 24.1 pg (25.7-33.7); MEAN CELL VOLUME 75.3 fl (80-96); MEAN PLT VOLUME 8.4 fl (7.5-11.1); PLATELET COUNT 404 K/MM3 (134-434); RBC 3.65 M/mm3 (3.60-5.2); RDW 16.3 % (11.6-15.6); WHITE BLOOD COUNT 8.8 K/mm3 (4.0-10.0)
--- NOTE | 2018-04-09 10:53 | PN ---
Progress Note, Physician Chief Complaint: She is f/u for spinal biopsy tolerated well still have pains and has multiple pain meds she is c/o constipations no abd pains - Current Medication List Current Medications: Active Medications Dexamethasone Sodium Phosphate (Decadron Injection -) 4 mg IVPUSH Q6H-IV [facility] Last Admin: 04/09/18 09:24 Dose: 4 mg Fentanyl (Sublimaze Injection -) 50 mcg IVPUSH [id number] PRN PRN Reason: PAIN-PACU ORDER X 4 DOSES ONLY Gabapentin (Neurontin -) 300 mg PO TID [facility] Last Admin: 04/09/18 05:56 Dose: 300 mg Hydromorphone HCl (Dilaudid Vial -) 2 mg IVPB Q4H PRN PRN Reason: PAIN LEVEL 6-10 Last Admin: 04/09/18 09:24 Dose: 2 mg Sodium Chloride (Normal Saline -) 1,000 mls @ 42 mls/hr IV ASDIR [facility] Last Admin: 04/08/18 13:46 Dose: 42 mls/hr Ondansetron HCl (Zofran Injection) 8 mg IVPB Q8H PRN PRN Reason: NAUSEA Last Admin: 04/08/18 15:29 Dose: 8 mg Pantoprazole Sodium (Protonix Iv) 40 mg IVPUSH DAILY [facility] Last Admin: 04/09/18 09:24 Dose: 40 mg Polyethylene Glycol (Miralax (For Daily Use) -) 17 gm PO BID [facility] Last Admin: 04/09/18 09:26 Dose: Not Given Senna/Docusate Sodium (Pericolace -) 1 tablet PO BID [facility] Zolpidem Tartrate (Ambien -) 10 mg PO HS [facility] Last Admin: 04/08/18 21:52 Dose: 10 mg - Objective Vital Signs: Vital Signs Temperature 98 F 04/08/18 22:00 Pulse Rate 55 L 04/08/18 22:00 Respiratory Rate 18 04/08/18 22:00 Blood Pressure 105/55 L 04/08/18 22:00 O2 Sat by Pulse Oximetry (%) 98 04/08/18 21:00 ...Rectal Exam: Yes: Deferred Labs: CBC, BMP 04/09/18 08:49 04/08/18 06:00 INR, PTT INR 1.13 (0.83-1.09) H 04/06/18 14:34 Impression/Plan Impression/Plan: sp spinal mass s/p biopsy constipations plan add montserrat and colace continue the miralax iv steroids awaiting biopsy results and continue iv pain med due to severe pains inc activity Visit type - Emergency Visit Emergency Visit: No - New Patient This patient is new to me today: Yes Date on this admission: 04/09/18 - Critical Care Critical Care patient: No - Discharge Referral Referred to [facility] Med P.C.: No
--- NOTE | 2018-04-09 11:41 | PN ---
Progress Note (short form) - Note Progress Note: NEUROSURGERY L buttick/hip/thigh pain S/p CT guided biopsy yesterday PE: AF, VSS HENT- NC/AT; Neck- supple; Cor- RRR; Lungs- CTA B; Abd- benign; Ext- no sign of DVT CN- intact; Motor- 5/5 except mild L IP weakness 4+, pain limited; Sensation- paresthesia to LT/PP L L3-4-5-S1; DTR- 2+ except absent L patellar DTR; + SLR on L at 30 degrees MRI LS spine (noncontrast): L L4-L5-S1 Paraspinal mass displacing the psoas muscle anteriorly; T2 hyperintensity L4, L5 and L S1; L4-5, L5-S1 DDD > L3-4 CT Abd- 4x5x6 mixed density L paravertebral lesion L L4-5-S1 paraspinal mass, r/o mets >s primary malignancy (neurofibroma, malignant schwannoma, leiomyosarcoma), less likely infection CT guided biopsy result pending Role of surgery likely limited depending on path LS spine MRI with niyah electively to assess tumor origin, size, and margin Cont Neurontin for radicular symptoms Steroids
[2018-04-09] MEDS: ONDANSETRON 4 MG/2 ML VIAL IVPB PRN ×2 (12:25→21:51)
[2018-04-09] MEDS: SENNOSIDES/DOCUSATE COMBO (SENNA PLUS) TABLET (UD) PO SCH ×2 (12:25→21:54)
[2018-04-09 12:29] LABS: ANISOCYTOSIS 1+; MACROCYTOSIS 0; OVALOCYTE 1+; PLATELET ESTIMATE NORMAL; TARGET CELLS 1+
[2018-04-09] MEDS: GABAPENTIN 400 MG CAPSULE (FP) PO SCH ×2 (15:38→21:54)
--- NOTE | 2018-04-09 16:10 | PN ---
Progress Note (short form) - Note Progress Note: Patient seen in follow up. No new complaints. Reporting ongoing nausea, attributed to Dilaudid. Pain controlled. No significant events overnight. Inpatient Meds reviewed. Current Medications Generic Name Dose Route Start Last Admin Trade Name Freq PRN Reason Stop Dose Admin Dexamethasone Sodium Phosphate 4 mg 04/08/18 21:00 04/09/18 15:39 Decadron Injection - IVPUSH 4 mg Q6H-IV RONNY Administration Fentanyl 50 mcg 04/08/18 11:36 Sublimaze Injection - IVPUSH [id number] PRN PAIN-PACU ORDER X 4 DOSES ONLY Gabapentin 400 mg 04/09/18 14:00 04/09/18 15:38 Neurontin - PO 400 mg TID RONNY Administration Hydromorphone HCl 2 mg 04/06/18 21:26 04/09/18 09:24 Dilaudid Vial - IVPB 2 mg Q4H PRN Administration PAIN LEVEL 6-10 Sodium Chloride 1,000 mls @ 42 mls/hr 04/08/18 11:45 04/08/18 13:46 Normal Saline - IV 42 mls/hr ASDIR RONNY Administration Ondansetron HCl 8 mg 04/07/18 19:50 04/09/18 12:25 Zofran Injection IVPB 8 mg Q8H PRN Administration NAUSEA Pantoprazole Sodium 40 mg 04/07/18 10:00 04/09/18 09:24 Protonix Iv IVPUSH 40 mg DAILY RONNY Administration Polyethylene Glycol 17 gm 04/06/18 22:00 04/09/18 09:26 Miralax (For Daily Use) - PO Not Given BID RONNY Senna/Docusate Sodium 1 tablet 04/09/18 11:00 04/09/18 12:25 Pericolace - PO 1 tablet BID RONNY Administration Zolpidem Tartrate 10 mg 04/07/18 22:00 04/08/18 21:52 Ambien - PO 10 mg HS RONNY Administration On Examination: Last Vital Signs Temp Pulse Resp BP Pulse Ox 98.6 F 66 18 119/73 98 04/09/18 15:24 04/09/18 15:24 04/09/18 15:24 04/09/18 15:24 04/08/18 21:00 General: In no acute distress. Extremities: No pallor or icterus. No pedal edema. No palpable lymphadenopathy. CVS: S1, S2, regular, no gallop or murmur. Chest: good air entry bilaterally, clear Abdomen: Non-distended, non-tender, no palpable organomegaly. Neuro: Alert, oriented, non-focal. Labs: CBC, BMP 04/09/18 08:49 04/08/18 06:00 Assessment. History of cervical ca, presenting with paraspinal mass. Biopsied, results pending. Unclear role for steroids - would defer to neurosurgery Microcytic anemia - likely attributable to iron deficiency. Iron panel pending. Can start empiric iron supplementation.
[2018-04-09] MEDS: ZOLPIDEM TARTRATE 5 MG TABLET PO SCH (21:54)
[2018-04-10] MEDS: DEXAMETHASONE SOD PHOSPHATE 4 MG/1 ML VIAL IVPUSH SCH ×2 (03:47→10:06)
[2018-04-10 06:37] LABS: SERUM IRON SATURATION 44 % (15-55); TOTAL IRON BINDING CAPACITY 247 ug/dL (250-450); UIBC 138 ug/dL (131-425)
[2018-04-10] MEDS: GABAPENTIN 400 MG CAPSULE (FP) PO SCH (06:48)
[2018-04-10] MEDS: PANTOPRAZOLE SODIUM 40 MG VIAL IVPUSH SCH (10:06)
[2018-04-10] MEDS: SENNOSIDES/DOCUSATE COMBO (SENNA PLUS) TABLET (UD) PO SCH (10:06)
[2018-04-10] MEDS: POLYETHYLENE GLYCOL 3350 119 GM BTL PO SCH (10:06)
--- NOTE | 2018-04-10 10:42 | PN ---
Physical Exam: SUBJECTIVE: Patient seen and examined she is much better no pains no new and ready to go home OBJECTIVE: Vital Signs Period Temp Pulse Resp BP Sys/Armenta Pulse Ox Last 24 Hr 98.2 F-98.6 F 55-66 16-18 98-119/56-73 GENERAL: The patient is awake, alert, and fully oriented, in no acute distress. HEAD: Normal with no signs of trauma. EYES: PERRL, extraocular movements intact, sclera anicteric, conjunctiva clear. No ptosis. ENT: Ears normal, nares patent, oropharynx clear without exudates, moist mucous membranes. NECK: Trachea midline, full range of motion, supple. LUNGS: Breath sounds equal, clear to auscultation bilaterally, no wheezes, no crackles, no accessory muscle use. HEART: Regular rate and rhythm, S1, S2 without murmur, rub or gallop. ABDOMEN: Soft, nontender, nondistended, normoactive bowel sounds, no guarding, no rebound, no hepatosplenomegaly, no masses. EXTREMITIES: 2+ pulses, warm, well-perfused, no edema. NEUROLOGICAL: Cranial nerves II through XII grossly intact. Normal speech, gait not observed. PSYCH: Normal mood, normal affect. SKIN: Warm, dry, normal turgor, no rashes or lesions noted Laboratory Results - last 24 hr 04/09/18 04/09/18 04/09/18 08:49 08:49 08:49 Neutrophils % (Manual) 86.9 H Band Neutrophils % 1.0 Lymphocytes % (Manual) 9.1 Monocytes % (Manual) 3 L D Eosinophils % (Manual) 0.0 Basophils % (Manual) 0.0 Myelocytes % (Man) 0 Promyelocytes % (Man) 0 Blast Cells % (Manual) 0 Metamyelocytes 0 Hypochromia 0 Platelet Estimate Normal Polychromasia 2+ Poikilocytosis 1+ Anisocytosis 1+ Microcytosis 1+ Macrocytosis 0 Target Cells 1+ Ovalocytes 1+ Iron 109 TIBC 247 L Iron Saturation 44 Ferritin 196.4 Active Medications Generic Name Dose Route Start Last Admin Trade Name Freq PRN Reason Stop Dose Admin Dexamethasone Sodium Phosphate 4 mg 04/08/18 21:00 04/10/18 10:06 Decadron Injection - IVPUSH 4 mg Q6H-IV RONNY Administration Fentanyl 50 mcg 04/08/18 11:36 Sublimaze Injection - IVPUSH [id number] PRN PAIN-PACU ORDER X 4 DOSES ONLY Gabapentin 400 mg 04/09/18 14:00 04/10/18 06:48 Neurontin - PO 400 mg TID RONNY Administration Hydromorphone HCl 2 mg 04/06/18 21:26 04/09/18 22:33 Dilaudid Vial - IVPB 2 mg Q4H PRN Administration PAIN LEVEL 6-10 Sodium Chloride 1,000 mls @ 42 mls/hr 04/08/18 11:45 04/08/18 13:46 Normal Saline - IV 42 mls/hr ASDIR RONNY Administration Ondansetron HCl 8 mg 04/07/18 19:50 04/09/18 21:51 Zofran Injection IVPB 8 mg Q8H PRN Administration NAUSEA Pantoprazole Sodium 40 mg 04/07/18 10:00 04/10/18 10:06 Protonix Iv IVPUSH 40 mg DAILY RONNY Administration Polyethylene Glycol 17 gm 04/06/18 22:00 04/10/18 10:06 Miralax (For Daily Use) - PO Not Given BID RONNY Senna/Docusate Sodium 1 tablet 04/09/18 11:00 04/10/18 10:06 Pericolace - PO 1 tablet BID RONNY Administration Zolpidem Tartrate 10 mg 04/07/18 22:00 04/09/18 21:54 Ambien - PO 10 mg HS RONNY Administration ASSESSMENT/PLAN: sp spinal mass s/p biopsy constipations plan she is being discharged home and advised to take dilaudid 2 mg bid prn continue her home meds f/u with dr nix next week and check the biopsy result with him, use medrol dose pack in home paper rx given Visit type - Emergency Visit Emergency Visit: Yes ED Registration Date: 04/06/18 Care time: The patient presented to the Emergency Department on the above date and was hospitalized for further evaluation of their emergent condition. - New Patient This patient is new to me today: No - Critical Care Critical Care patient: No - Discharge Referral Referred to [facility] Med P.C.: No
--- NOTE | 2018-04-10 12:28 | PN ---
Progress Note (short form) - Note Progress Note: Patient seen in follow up. No new complaints. Pain controlled. No significant events overnight. Inpatient Meds reviewed. Current Medications Generic Name Dose Route Start Last Admin Trade Name Freq PRN Reason Stop Dose Admin Dexamethasone Sodium Phosphate 4 mg 04/08/18 21:00 04/10/18 10:06 Decadron Injection - IVPUSH 4 mg Q6H-IV RONNY Administration Fentanyl 50 mcg 04/08/18 11:36 Sublimaze Injection - IVPUSH [id number] PRN PAIN-PACU ORDER X 4 DOSES ONLY Gabapentin 400 mg 04/09/18 14:00 04/10/18 06:48 Neurontin - PO 400 mg TID RONNY Administration Hydromorphone HCl 2 mg 04/06/18 21:26 04/09/18 22:33 Dilaudid Vial - IVPB 2 mg Q4H PRN Administration PAIN LEVEL 6-10 Sodium Chloride 1,000 mls @ 42 mls/hr 04/08/18 11:45 04/08/18 13:46 Normal Saline - IV 42 mls/hr ASDIR RONNY Administration Ondansetron HCl 8 mg 04/07/18 19:50 04/09/18 21:51 Zofran Injection IVPB 8 mg Q8H PRN Administration NAUSEA Pantoprazole Sodium 40 mg 04/07/18 10:00 04/10/18 10:06 Protonix Iv IVPUSH 40 mg DAILY RONNY Administration Polyethylene Glycol 17 gm 04/06/18 22:00 04/10/18 10:06 Miralax (For Daily Use) - PO Not Given BID RONNY Senna/Docusate Sodium 1 tablet 04/09/18 11:00 04/10/18 10:06 Pericolace - PO 1 tablet BID RONNY Administration Zolpidem Tartrate 10 mg 04/07/18 22:00 04/09/18 21:54 Ambien - PO 10 mg HS RONNY Administration On Examination: Last Vital Signs Temp Pulse Resp BP Pulse Ox 98.2 F 55 L 18 102/59 L 98 04/10/18 06:00 04/10/18 06:00 04/10/18 06:00 04/10/18 06:00 04/08/18 21:00 General: In no acute distress. Extremities: No pallor or icterus. No pedal edema. No palpable lymphadenopathy. CVS: S1, S2, regular, no gallop or murmur. Chest: good air entry bilaterally, clear Abdomen: Non-distended, non-tender, no palpable organomegaly. Neuro: Alert, oriented, non-focal. Labs: CBC, BMP 04/09/18 08:49 04/08/18 06:00 Assessment. History of cervical ca, presenting with paraspinal mass. Biopsied, results pending. Unclear role for steroids - would defer to neurosurgery - likely could be rapidly tapered Microcytic anemia - likely thalassemia trait - iron panel not suggestive of iron deficiency. Iron supplementation not warranted. Will be discharged - follow up as OP for results of biopsy.
[2018-04-10] MEDS: HYDROmorphone HCl 2 MG/ML VIAL IVPB PRN (12:41)
[2018-04-10 14:11] VITALS: BP 120/66; PULSE 59; TEMP 98.2
[2018-04-12 10:12] LABS: HGB SOLUBILITY Negative (Negative); Hgb A 98.2 % (96.4-98.8); Hgb C 0 % (0.0); Hgb F 0 % (0.0-2.0); Hgb S 0 % (0.0)
--- NOTE | 2018-04-12 17:25 | PATH ---
Surgical Pathology Report Patient Name: BEBETO HOLLAND Med. Rec. #: [id number] /Age/Gender: 1975 (Age: 42) / F Account: [id number] Location: [facility] MED/SURG Taken: 04/08/2018 Received: 04/08/2018 Reported: 04/12/2018 Physicians: Galen Bautista M.D. Norman Rosen, M.D. Specimen(s) Received BX L PSOAS MASS Clinical History 42 year old female with cervical cancer with left psoas /iliopsoas mass Final Diagnosis PSOAS/ILIOPSOAS MASS, LEFT, CT-GUIDED CORE BIOPSY: SQUAMOUS CELL CARCINOMA, POORLY DIFFERENTIATED. SEE COMMENT. Comment: Immunohistochemical stains performed and interpreted at [facility] show the tumor is positive for AE1/3 and p63. Additional immunohistochemical stains performed at [place], [place] ([id number]) and interpreted at [facility] show the tumor is positive for p40 and p16. Prior material from the cervix is reviewed ([id number]) and show morphologic overlap. Overall morphology and immunophenotype are consistent with known history of invasive squamous cell carcinoma of the cervix. Findings discussed with Dr. Benito. Electronically Signed Irina George M.D. Gross Description Received in formalin labeled "biopsy," is a 0.8 x 0.5 x 0.1 cm aggregate of hunt, irregular to cylindrical soft tissue fragments. The formalin is filtered and the specimen is entirely submitted in one cassette. There is additional tissue received in RPMI solution which is in the histology refrigerator. /04/08/201804/08/2018
== END 2018-04-10 15:53 | disposition home or self-care (01) | DRG 607 ==
LOC: JER 11:10 → JERBED 14:34 → J7W 16:16
PROVIDERS: ADMIT Internal Medicine; ATTEND Internal Medicine
PROC: 0WBH3ZX Excision of Retroperitoneum, Percutaneous Approach, Diagnostic (ICD-10-PCS; principal; 2018-04-08 10:00)
DX: R22.2 Localized swelling, mass and lump, trunk (principal); F17.210 Nicotine dependence, cigarettes, uncomplicated; K59.00 Constipation, unspecified; D64.9 Anemia, unspecified; Z85.41 Personal history of malignant neoplasm of cervix uteri
CPT/HCPCS: 36415; 49180; 74178-TC; 80053; 80061; 81003; 81015; 82728; 83021; 83036; 83540; 83550; 83721; 83735; 84703; 85025; 85610; 85651; 85660; 85730; 86140; 86850; 86900; 86901; 87040; 88305-TC; 88341-TC; 93005; 93010; 93306-TC; 94760; 99283-25; J1100; J7030

== ENCOUNTER 2018-05-08 17:06 | Emergency (ER) | payer OTHER ==
[2018-05-08 17:17] VITALS: BMI 25.4
[2018-05-08] MEDS ORDERED: HYDROmorphone HCL 2 MG TABLET PO ONE ×2 (18:06→19:42)
[2018-05-08] MEDS ORDERED: HYDROmorphone HCL 2 MG TABLET ONE ×2 (18:13→20:07)
--- NOTE | 2018-05-08 18:24 | PDOC ---
History of Present Illness - General Chief Complaint: Pain Stated Complaint: ABD PAIN Time Seen by Provider: 05/08/18 18:00 History Source: Patient - History of Present Illness Severity: reports: severe Pain Location: reports: back Past History - Past Medical History Allergies/Adverse Reactions: Allergies Allergy/AdvReac Type Severity Reaction Status Date / Time morphine Allergy Mild Itching Verified 05/08/18 17:16 No Known Drug Allergies Allergy Verified 05/08/18 17:16 Home Medications: Ambulatory Orders Gabapentin [Neurontin -] 300 mg PO TID capsule 04/10/18 HYDROmorphone [Dilaudid -] 2 mg PO Q12H PRN 5 Days #10 tablet MDD 2 04/10/18 Methylprednisolone [Medrol Dose Valentin] 4 mg PO ASDIR #21 tablet 04/10/18 Ondansetron [Zofran Odt -] 4 mg SL TID #21 od.tablet 04/10/18 Pantoprazole Sodium [Protonix IV] 40 mg IVPUSH DAILY vial 04/10/18 Polyethylene Glycol 3350 [Miralax 119 gm Btl -] 17 gm PO BID bottle 04/10/18 Anemia: No Asthma: No Cancer: Yes (uterus pathology tba tomorrow) Cardiac Disorders: No CVA: No COPD: No CHF: No Dementia: No Diabetes: No GI Disorders: No Disorders: No HTN: No Hypercholesterolemia: No Liver Disease: No Seizures: No Thyroid Disease: No Other medical history: SPINAL CANCER - Surgical History Abdominal Surgery: No Appendectomy: No Cardiac Surgery: No Cholecystectomy: No Lung Surgery: No Neurologic Surgery: No Orthopedic Surgery: No - Suicide/Smoking/Psychosocial Hx Smoking Status: Yes Smoking History: Never smoked Years of Tobacco Use: 20 Have you smoked in the past 12 months: No Number of Cigarettes Smoked Daily: 8 If you are a former smoker, when did you quit?: 2010 Cigars Per Day: 5 'Breaking Loose' booklet given: 12/01/11 Hx Alcohol Use: Yes (SOCIAL) Drug/Substance Use Hx: No Substance Use Type: None Hx Substance Use Treatment: No Review of Systems - Review of Systems Constitutional: No: Chills, Fever ABD/GI: No: Nausea, Vomiting Musculoskeletal: Yes: Back Pain Neurological: No: Numbness, Tingling, Weakness *Physical Exam - Vital Signs Last Vital Signs Temp Pulse Resp BP Pulse Ox 98.7 F 94 H 18 130/64 99 05/08/18 17:10 05/08/18 17:10 05/08/18 17:10 05/08/18 17:10 05/08/18 17:10 - Physical Exam General Appearance: Yes: Appropriately Dressed, Severe Distress HEENT: positive: Normal Voice Neck: positive: Supple Respiratory/Chest: negative: Respiratory Distress Gastrointestinal/Abdominal: positive: Soft. negative: Tender Musculoskeletal: positive: Vertebral Tenderness Extremity: positive: Normal Inspection Integumentary: positive: Dry, Warm Neurologic: positive: Fully Oriented, Alert, Normal Mood/Affect, Motor Strength 5/5. negative: Numbness Moderate Sedation - Procedure Monitoring Vital Signs: Procedure Monitoring Vital Signs Temperature 98.7 F 05/08/18 17:10 Pulse Rate 94 H 05/08/18 17:10 Respiratory Rate 18 05/08/18 17:10 Blood Pressure 130/64 05/08/18 17:10 O2 Sat by Pulse Oximetry (%) 99 05/08/18 17:10 Medical Decision Making - Medical Decision Making 05/08/18 18:14 42-year-old female, history of cervical squamous cell carcinoma, s/p LISBETH-BSO in 2011, with one positive node on the left side, who was recently diagnosed w/ L paraspinal mass (L iliopsoas mass on MRI)after p/w L lower back pain, possibly representing metastatic cervical ca per biopsy report 04/10/18, currently a/w management w/ Dr Benito, here for her usual L lower back pain radiating to LLE. Per pt, currently on dilaudid for pain and prescribed 2 mg BID last month, but states she had currently been taking up to 4 mg in 1 dose for pain control and has since ran out and not due for another refill until Wednesday of this coming week. Patient denies any lower extremity weakness, saddle anesthesia or bowel or bladder incontinence. No f/c See exam Recent dx of possible metastatic cervical ca w/ L iliopsoas mass on MRI, pending management w/ Dr Benito, and here for her usual L lower/radicular pain and req pain control after running out of dilaudid No e/o cauda equina on exam today No e/o infection -pain control in ED and reassess 05/08/18 18:58 Pt signed to PA Daniels pending reassessment. If improved to be discharged with Medrol Dosepak and to follow up with Dr. Benito tomorrow *DC/Admit/Observation/Transfer Diagnosis at time of Disposition: Pain - Discharge Dispostion Disposition: HOME Condition at time of disposition: Stable - Referrals Referrals: Ryne Lowe MD [Primary Care Provider] - - Patient Instructions Printed Discharge Instructions: DI for Low Back Pain Additional Instructions: Your Discharge Instructions: You must call primary care physician within 24 hours to arrange follow-up. Return to the Emergency Department with any new, persistent or worsening symptoms, for fever, chills, SOB, dizziness or any other concerning changes that may occur. Follow-up with Dr. Benito tomorrow. - Post Discharge Activity
[2018-05-08] MEDS ORDERED: DEXAMETHASONE SOD PHOSPHATE 10 MG/1 ML VIAL IM ONE (18:27)
[2018-05-08] MEDS ORDERED: DEXAMETHASONE SOD PHOSPHATE 10 MG/1 ML VIAL ONE (18:38)
--- NOTE | 2018-05-08 20:11 | PDOC ---
*Physical Exam - Vital Signs Last Vital Signs Temp Pulse Resp BP Pulse Ox 98.7 F 94 H 18 130/64 99 05/08/18 17:10 05/08/18 17:10 05/08/18 17:10 05/08/18 17:10 05/08/18 17:10 ED Treatment Course - Medications Given in the ED: ED Medications Discontinued Medications Generic Name Dose Route Start Last Admin Trade Name Kavin PRN Reason Stop Dose Admin Dexamethasone Sodium Phosphate 10 mg 05/08/18 18:27 05/08/18 18:40 Decadron Injection - IM 05/08/18 18:28 10 mg ONCE ONE Administration Hydromorphone HCl 2 mg 05/08/18 18:06 05/08/18 18:10 Dilaudid - PO 05/08/18 18:07 2 mg ONCE ONE Administration Medical Decision Making - Medical Decision Making 05/08/18 20:11 Patient endorsed to me by FAHAD Mcdaniel pending disposition. Patient reports feeling improved will give Dilaudid 2 mg by mouth and discharge. 05/08/18 20:15 I discussed the physical exam findings, ancillary test results and final diagnoses with the patient. I answered all of the patient's questions. The patient was satisfied with the care received and felt comfortable with the discharge plan and treatment plan. The Patient agrees to follow up with the primary care physician within 24-72 hours. *DC/Admit/Observation/Transfer Diagnosis at time of Disposition: Pain - Discharge Dispostion Disposition: HOME Condition at time of disposition: Stable - Referrals Referrals: Ryne Lowe MD [Primary Care Provider] - - Patient Instructions Printed Discharge Instructions: DI for Low Back Pain Additional Instructions: Your Discharge Instructions: You must call primary care physician within 24 hours to arrange follow-up. Return to the Emergency Department with any new, persistent or worsening symptoms, for fever, chills, SOB, dizziness or any other concerning changes that may occur. Follow-up with Dr. Benito tomorrow. - Post Discharge Activity
[2018-05-08 20:28] VITALS: BP 107/55; PULSE 75; TEMP 99.3
== END 2018-05-08 20:28 | disposition home or self-care (01) ==
LOC: JER 17:06 → SUPCPDRO 17:06 → JER 20:28
PROC: 3E0233Z Introduction of Anti-inflammatory into Muscle, Percutaneous Approach (ICD-10-PCS; principal; 2018-05-08)
DX: R22.2 Localized swelling, mass and lump, trunk (principal); Z85.41 Personal history of malignant neoplasm of cervix uteri; Z90.79 Acquired absence of other genital organ(s)
CPT/HCPCS: 99283-25; J1100

== ENCOUNTER 2018-05-11 06:26 | Emergency (ER) | payer OTHER ==
[2018-05-11 06:55] VITALS: BP 98/54; PULSE 89; TEMP 98.1; BMI 24.7
== END 2018-05-11 07:29 | disposition left against medical advice (07) ==
LOC: JER 06:26
DX: Z53.21 Procedure and treatment not carried out due to patient leaving prior to being seen by health care provider (principal)
CPT/HCPCS: 99281-25

== ENCOUNTER 2018-05-11 08:12 | Emergency (ER) | payer OTHER ==
[2018-05-11] MEDS ORDERED: HYDROmorphone HCL CARPU-JECT 1 MG/1 ML DISP.SYRIN IM STA (08:22)
[2018-05-11 08:24] VITALS: BP 114/61; PULSE 88; TEMP 98.3; BMI 25.4
[2018-05-11] MEDS ORDERED: HYDROmorphone HCL CARPU-JECT 1 MG/1 ML DISP.SYRIN ONE (08:26)
--- NOTE | 2018-05-11 08:32 | PDOC ---
History of Present Illness - General Chief Complaint: Pain Stated Complaint: PT COMPLAins of back pain down left hip and leg Time Seen by Provider: 05/11/18 08:13 - History of Present Illness Initial Comments: 05/11/18 08:26 42 F with h/o cervical squamous cell carcinoma, s/p LISBETH-BSO in 2011, recently diagnosed w/ L paraspinal mass (L iliopsoas mass on MRI), possibly representing metastatic cervical ca per biopsy report 04/10/18, presenting to ED for med refill. Pt reports she is taking dilaudid 4mg PO Q4hr for chronic back pain 2/2 paraspinal mass. She denies any new symptoms today and states she is here because she ran out of her pain medication. She states that Dr. Lowe has sent in a refill for her that won't be ready until tomorrow. Pt denies any leg weakness/numbness or incontinence. Past History - Past Medical History Allergies/Adverse Reactions: Allergies Allergy/AdvReac Type Severity Reaction Status Date / Time morphine Allergy Mild Itching Verified 05/11/18 08:14 No Known Drug Allergies Allergy Verified 05/11/18 08:14 Home Medications: Ambulatory Orders Gabapentin 600 mg PO DAILY 05/11/18 HYDROmorphone [Dilaudid -] 4 mg PO Q4H 05/11/18 HYDROmorphone [Dilaudid -] 4 mg PO Q6H #8 tablet MDD 8 tabs 05/11/18 Anemia: No Asthma: No Cancer: Yes (uterus pathology tba tomorrow) Cardiac Disorders: No CVA: No COPD: No CHF: No Dementia: No Diabetes: No GI Disorders: No Disorders: No HTN: No Hypercholesterolemia: No Liver Disease: No Seizures: No Thyroid Disease: No - Surgical History Abdominal Surgery: No Appendectomy: No Cardiac Surgery: No Cholecystectomy: No Lung Surgery: No Neurologic Surgery: No Orthopedic Surgery: No - Suicide/Smoking/Psychosocial Hx Smoking Status: Yes Smoking History: Current every day smoker Years of Tobacco Use: 20 Have you smoked in the past 12 months: No Number of Cigarettes Smoked Daily: 3 If you are a former smoker, when did you quit?: 2009 Cigars Per Day: 5 Information on smoking cessation initiated: Yes 'Breaking Loose' booklet given: 12/01/11 Hx Alcohol Use: Yes (occassional) Drug/Substance Use Hx: No Substance Use Type: None Hx Substance Use Treatment: No Review of Systems - Review of Systems Comments:: 05/11/18 08:30 GENERAL/CONSTITUTIONAL: No fever or chills. No weakness. HEAD, EYES, EARS, NOSE AND THROAT: No change in vision. No ear pain or discharge. No sore throat. CARDIOVASCULAR: No chest pain, no shortness of breath, no loss of consciousness RESPIRATORY: No cough, wheezing, or hemoptysis. GASTROINTESTINAL: No nausea, vomiting, diarrhea or constipation. GENITOURINARY: No dysuria, frequency, or change in urination. MUSCULOSKELETAL: + back pain. No joint or muscle swelling or pain. SKIN: No rash NEUROLOGIC: No vertigo, no change in strength/sensation. ENDOCRINE: No increased thirst. No abnormal weight change. HEMATOLOGIC/LYMPHATIC: No anemia, easy bleeding, or history of blood clots. ALLERGIC/IMMUNOLOGIC: No hives or skin allergy. *Physical Exam - Vital Signs Last Vital Signs Temp Pulse Resp BP Pulse Ox 98.3 F 88 20 114/61 100 05/11/18 08:13 05/11/18 08:13 05/11/18 08:13 05/11/18 08:13 05/11/18 08:13 - Physical Exam Comments: 05/11/18 08:30 GENERAL: Awake, alert, and fully oriented, in no acute distress. HEAD: No signs of trauma EYES: PERRLA, EOMI, sclera anicteric, conjunctiva clear ENT: Auricles normal inspection, hearing grossly normal, nares patent, oropharynx clear without exudates. Moist mucosa NECK: Nontender, no stepoffs, Normal ROM, supple, no lymphadenopathy, JVD, or masses LUNGS: Breath sounds equal, clear to auscultation bilaterally. No wheezes, and no crackles HEART: Regular rate and rhythm, normal S1 and S2, no murmurs, rubs or gallops ABDOMEN: Soft, nontender, normoactive bowel sounds. No guarding, no rebound. No masses EXTREMITIES: Normal range of motion, no edema. No clubbing or cyanosis. No cords, erythema, or tenderness NEUROLOGICAL: Cranial nerves II through XII intact. 5/5 strength and sensation in all extremities, Normal speech, normal gait, normal cerebellar function SKIN: Warm, Dry, normal turgor, no rashes or lesions noted. Moderate Sedation - Procedure Monitoring Vital Signs: Procedure Monitoring Vital Signs Temperature 98.3 F 05/11/18 08:13 Pulse Rate 88 05/11/18 08:13 Respiratory Rate 20 05/11/18 08:13 Blood Pressure 114/61 05/11/18 08:13 O2 Sat by Pulse Oximetry (%) 100 05/11/18 08:13 Medical Decision Making - Medical Decision Making 05/11/18 08:30 42 F with h/o metastatic squamous cell CA with paraspinal met, here for med refill after running out of her dilaudid. Pt with no concerning s/s of spinal cord compression or cauda equina. - Dilaudid 1mg IM - Pt given prescription for 1 day's worth of dilaudid PO I-stop report reviewed - last prescription filled was 17 day supply of dilaudid on 04/[address] Lowe. 05/11/18 08:53 Pain now well controlled Pt is well appearing, with normal vitals. Clinically stable for DC at this time. I discussed the physical exam findings, ancillary test results and final diagnoses with the patient. I answered all of the patient's questions. The patient was satisfied with the care received and felt comfortable with the discharge plan and treatment plan. The patient agrees to follow up with the primary care physician within 24-72 hours. *DC/Admit/Observation/Transfer Diagnosis at time of Disposition: Back pain, Paravertebral mass, Medication refill - Discharge Dispostion Disposition: HOME Condition at time of disposition: Stable - Prescriptions Prescriptions: HYDROmorphone [Dilaudid -] 4 mg PO Q6H #8 tablet MDD 8 tabs - Referrals Referrals: Ryne Lowe MD [Primary Care Provider] - - Patient Instructions Printed Discharge Instructions: DI for Prescription Opioid Use Additional Instructions: I have sent you one day's worth of dilaudid to your pharmacy. Take it as instructed. Do not use more than prescribed. Follow up with your primary doctor within 1 week for further evaluation. If you experience any worsening pain, weakness or numbness in your legs, difficulty controlling your bowel or bladder, or any other concerning symptoms, return to the ER immediately. - Post Discharge Activity - Attestations Physician Attestion: 05/11/18 08:38 I, Dr. Mekhi Berrios MD, attest that this document has been prepared under my direction and personally reviewed by me in its entirety. I further attest, that it accurately reflects all work, treatment, procedures and medical decision -making performed by me.
== END 2018-05-11 08:57 | disposition home or self-care (01) ==
LOC: FER 08:12
PROC: 3E023NZ Introduction of Analgesics, Hypnotics, Sedatives into Muscle, Percutaneous Approach (ICD-10-PCS; principal; 2018-05-11)
DX: Z76.0 Encounter for issue of repeat prescription (principal); M54.9 Dorsalgia, unspecified; R22.9 Localized swelling, mass and lump, unspecified; Z85.828 Personal history of other malignant neoplasm of skin
CPT/HCPCS: 99282-25